=== PATIENT | female | born 2000 | race Two or more races ===

== ENCOUNTER 2022-07-24 12:31 | Emergency (ER) | payer OTHER ==
[~2022-07-24] VITALS: Ht 162.6 cm; Wt 60.8 kg
[2022-07-24] MEDS ORDERED: [UNRECOGNIZED DRUG - OTHER] PO (12:51)
== END 2022-07-24 15:55 | disposition home or self-care (01) ==
LOC: ER 12:31
DX: O26.92 Pregnancy related conditions, unspecified, second trimester (principal); Z3A.19 19 weeks gestation of pregnancy; R10.2 Pelvic and perineal pain; M54.9 Dorsalgia, unspecified

== ENCOUNTER 2022-07-26 11:42 | Outpatient (CLI) | payer OTHER ==
[~2022-07-26 11:42] MED LIST: [UNRECOGNIZED DRUG - OTHER] PO
== END 2022-07-26 13:30 | disposition home or self-care (01) ==
LOC: PRENATAL 11:42
PROVIDERS: ATTEND Obstetrics & Gynecology Maternal & Fetal Medicine
DX: O35.9XX0 Maternal care for (suspected) fetal abnormality and damage, unspecified, not applicable or unspecified (principal); O34.219 Maternal care for unspecified type scar from previous cesarean delivery; O35.3XX0 Maternal care for (suspected) damage to fetus from viral disease in mother, not applicable or unspecified; O14.90 Unspecified pre-eclampsia, unspecified trimester; Z3A.20 20 weeks gestation of pregnancy

== ENCOUNTER 2022-11-20 21:28 | Outpatient (CLI) | payer OTHER | END 2022-11-21 10:25 | disposition home or self-care (01) | LOC: OBS/DEL 21:28 | PROVIDERS: Obstetrics & Gynecology; ATTEND Obstetrics & Gynecology | DX: O26.893 Other specified pregnancy related conditions, third trimester (principal); Z3A.36 36 weeks gestation of pregnancy; Z88.1 Allergy status to other antibiotic agents ==